=== PATIENT | male | born 1975 | race Caucasian/White ===

== ENCOUNTER 2017-04-22 03:21 | Emergency (ER) | payer BC, OTHER ==
[2017-04-22 03:36] VITALS: BP 116/80; PULSE 85; TEMP 97.8; BMI 29.5
--- NOTE | 2017-04-22 03:38 | PDOC ---
History of Present Illness - General Chief Complaint: Muscle Cramping Stated Complaint: muscle twitching Time Seen by Provider: 04/22/17 03:35 History Source: Patient Exam Limitations: No Limitations - History of Present Illness Initial Comments: 04/22/17 03:44 This is a 42-year-old male who works out frequently and exercises on a regular basis . Patient does [employer]. Patient is wearing a splint to his right wrist secondary to an injury sustained during [employer]. Patient comes in complaining of twitching of the muscle of his anterior rotator cuff. Patient said that it Started this morning and has been persistent since a few hours ago. Patient denies any associated pain. Patient denies history of similar symptoms in the past. Patient says he is otherwise healthy and denies any weakness in the arm. PAST MEDICAL HISTORY: no significant history PAST SURGICAL HISTORY: no significant history FAMILY HISTORY: no pertinant history SOCIAL HISTORY: Pt lives with family and is employed. MEDICATIONS: reviewed ALLERGIES: As per nursing notes Review of Systems General: No fevers or chills, no weakness, no weight loss HEENT: No change in vision. No sore throat,. No ear pain CardioVascular: No chest pain or shortness of breath Respiratory:No cough, or wheezing. Gastrointestinal: no nausea, vomitting, diarrhea or constipation, No rectal bleeding Genitourinary: No dysuria, hematuria, or frequency Musculoskeletal: Right shoulder muscle twitching Neurologic: No headache, vertigo, dizziness or loss of consciousness Psychiatric: nor depression Skin: No rashes or easy bruising Endocrine: no increased thirst or abnormal weight change Allergic: no skin or latex allergy All other systems reviewed and normal GENERAL: The patient is awake, alert, and fully oriented, in no acute distress. HEAD: Normal with no signs of trauma. EYES: Pupils equal, round and reactive to light, extraocular movements intact, sclera anicteric, conjunctiva clear. EXTREMITIES: Normal range of motion, no edema. There is noted to be twitching of the muscles of the anterior right shoulder rotator cuff. There is no tenderness on palpation there is no swelling, ecchymosis or increase in warmth or erythema to the area. Neurovascular is intact. NEUROLOGICAL: Normal speech, normal gait. PSYCH: Normal mood, normal affect. SKIN: Warm, Dry, normal turgor, no rashes or lesions noted. 04:30 Patient's symptoms have resolved. CAT scan was negative Blood work was normal the exception of the TSH which is still pending. Patient discharged home to follow-up with his primary care doctor Past History - Past Medical History Allergies/Adverse Reactions: Allergies Allergy/AdvReac Type Severity Reaction Status Date / Time Penicillins Allergy Verified 04/22/17 03:34 Home Medications: Ambulatory Orders NK [No Known Home Medication] 04/22/17 ED Treatment Course - LABORATORY CBC & Chemistry Diagram: 04/22/17 03:45 *DC/Admit/Observation/Transfer Diagnosis at time of Disposition: Muscle twitching - Discharge Dispostion Disposition: HOME Condition at time of disposition: Stable Admit: No - Referrals Referrals: Mary Jo Cordova MD [Primary Care Provider] - - Patient Instructions Additional Instructions: Return to the emergency department immediately with ANY new, persistent or worsening symptoms. Continue any medications as previously prescribed by your physician. You should follow up with your primary doctor as soon as possible regarding today's emergency department visit. . Please make sure your doctor reviews the results of your emergency evaluation. Thank you for coming to the Emergency Department today for your care. It was a pleasure to see you today. Please note that your evaluation is INCOMPLETE until you follow-up with your doctor.
[2017-04-22 05:13] LABS: MAGNESIUM 2.2 mg/dL (1.8-2.4); PHOSPHOROUS 4.1 mg/dL (2.5-4.9)
[2017-04-22 05:21] LABS: ANION GAP 7 (8-16); CALCIUM 9.1 mg/dL (8.5-10.1); CO2 29 mmol/L (21-32); GLUCOSE,RANDOM 106 mg/dL (74-106)
[2017-04-22 12:59] LABS: THYROID STIMULATING HORMONE 1.57 uIU/ml (0.358-3.74)
== END 2017-04-22 05:27 | disposition home or self-care (01) ==
LOC: FER 03:21
DX: M62.838 Other muscle spasm (principal); Z88.0 Allergy status to penicillin
CPT/HCPCS: 36415; 70450-TC; 80048; 83735; 84100; 84443; 99281-25

== ENCOUNTER 2021-06-12 22:26 | Emergency (ER) | payer OTHER ==
[2021-06-12 22:36] VITALS: BP 130/87; PULSE 103; TEMP 99.4; BMI 32.3
[2021-06-12] MEDS ORDERED: KETOROLAC TROMETHAMINE 30 MG/1 ML VIAL IM ONE (23:20)
[2021-06-12] MEDS ORDERED: KETOROLAC TROMETHAMINE 30 MG/1 ML VIAL ONE (23:24)
== END 2021-06-12 23:42 | disposition home or self-care (01) ==
LOC: FER 22:26
PROC: 3E0233Z Introduction of Anti-inflammatory into Muscle, Percutaneous Approach (ICD-10-PCS; principal; 2021-06-12)
DX: R10.2 Pelvic and perineal pain (principal)
CPT/HCPCS: 81003; 99283-25